=== PATIENT | female | born 1975 | race Hispanic/Latino ===

== ENCOUNTER 2017-09-30 06:44 | Inpatient (IN) | payer BC ==
[2017-09-29 13:29] VITALS: BMI 21.7
[2017-09-30] MEDS ORDERED: Bupivacaine HCl 0.25% PF (30 ml) Inj ONE (07:21)
[2017-09-30] MEDS ORDERED: Silver Nitrate Topical - Stick ONE (07:21)
[2017-09-30] MEDS ORDERED: Chlorhexidine Gluconate 2OZ GEL TP ONE (07:22)
[2017-09-30] MEDS ORDERED: ePHEDrine 50 mg/ml Inj ONE (07:28)
[2017-09-30] MEDS ORDERED: Succinylcholine 200 mg/10 ml Inj IV ONE (07:28)
[2017-09-30] MEDS ORDERED: Phenylephrine 10 mg/ml Inj ONE (07:28)
[2017-09-30] MEDS ORDERED: Rocuronium 10 mg/ml (5 ml) ONE (07:28)
[2017-09-30] MEDS ORDERED: Propofol 10 mg/ml Inj (20 ML) ONE (07:28)
[2017-09-30] MEDS ORDERED: Midazolam 2 MG/2 ML VIAL ONE (07:28)
[2017-09-30] MEDS ORDERED: Clindamycin 600mg/50ml NS 600 MG/50 ML BAG IVPB ONE (07:43)
[2017-09-30] MEDS ORDERED: Neostigmine 1:1000 (1 mg/ml) Inj ONE (07:47)
[2017-09-30] MEDS ORDERED: Lactated Ringer's 1,000 ML IV ONE ×3 (08:06→10:49)
[2017-09-30 08:20] LABS: MEAN CELL VOLUME 67.2 fl (81.0-99.0); MEAN CORPUSCULAR HGB CONC 32.8 g/dL (33.0-37.0); RED CELL DISTRIBUTION WIDTH 22.5 % (11.5-14.5); WHITE BLOOD COUNT 5.7 K/uL (4.8-10.8)
[2017-09-30] MEDS ORDERED: Dexamethasone 4 mg/1 ml ONE (09:22)
[2017-09-30] MEDS ORDERED: Morphine 1 mg/ml preservative-free Inj(Duramorph) ONE (10:15)
[2017-09-30] MEDS ORDERED: Naloxone 0.4 mg/ml Inj (Adult) IVP PRN (12:05)
[2017-09-30] MEDS: HYDROmorphone 0.5 mg/0.5 ml ISec IVP PRN ×2 (12:20→13:00)
[2017-09-30] MEDS ORDERED: metroNIDAZOLE 500mg/100ml NS 100 ML IVPB SCH ×3 (13:00→21:00)
[2017-09-30] MEDS ORDERED: Clindamycin 600mg/50ml D5W 600 MG/50 ML VIAL IVPB SCH (17:00)
[2017-09-30] MEDS: Lactated Ringer's 1,000 ML IV SCH (21:30)
[2017-10-01] MEDS ORDERED: DiphenhydrAMINE 50 mg/ml Inj IVP STA (00:35)
[2017-10-01] MEDS: Lactated Ringer's 1,000 ML IV SCH (08:34)
[2017-10-01] MEDS: HYDROmorphone 0.5 mg/0.5 ml ISec IVP PRN ×2 (17:02→22:34)
[2017-10-02] MEDS: HYDROmorphone 0.5 mg/0.5 ml ISec IVP PRN (04:49)
[2017-10-03 11:07] VITALS: BP 114/66; PULSE 79; RESP 16; TEMP 98.4; O2SAT 100
--- NOTE | 2017-10-05 18:40 | OP ---
PROCEDURE DATE: 09/30/2017 SURGEON: Roni King MD ASSISTED BY: Dom Carranza MD PREOPERATIVE DIAGNOSES: Pelvic pain, dysmenorrhea, dyspareunia, and vulvodynia. POSTOPERATIVE DIAGNOSES: Pelvic pain, dysmenorrhea, dyspareunia, vulvodynia, endometriosis, and uterine adenomyosis. PROCEDURE PERFORMED: Cystoscopy with bilateral ureteral catheterization with injection of dye, robotic da Lori laparoscopy operative, bilateral ureterolysis, excision of pelvic endometriosis, robotic hysterectomy and bilateral salpingectomy, and incidental appendectomy to be performed by Dr. Dom Carranza from General Surgery. ESTIMATED BLOOD LOSS: Minimal. ANESTHESIA: General endotracheal. SAMPLES: Soft tissue from left ureteral, left uterosacral, posterior cervical, right periureteral, uterocervix and both fallopian tubes, and appendix. INDICATION FOR THE PROCEDURE: The patient is a 42-year-old female with a longstanding history of severe pelvic pain. The pain had gone much severe over the past year and the patient had undergone multiple cycle treatments of pelvic therapy and therapeutic injections. She was on multiple medications including vaginal Valium and oral narcotics, which were unsuccessful in treating her problem. She also failed hormonal treatments. Prior to the surgery, the patient was counseled with regards to the risks and the benefits of the procedure and the likelihood of the operation to resolve her problems. She signed the consent and she was taken to the OR. DESCRIPTION OF PROCEDURE: After adequate anesthesia was obtained, the patient was placed in dorsal lithotomy position with extreme attention not to over flex or over extend her hips. She was padded in all areas prone to compression and she was prepped and draped. A time-out was taken according to the hospital standard and the procedure was stated. A cystoscope was inserted into the bladder and the bladder was gently distended. There was no evidence of interstitial cystitis. There was no evidence of stones or masses in the bladder or tumors. Both uterus were in normal anatomical position. The left ureter was catheterized and 5 mL of IC-Green were injected into the distal ureter. Similarly, 5 mL of IC-Green were injected into the contralateral distal ureter. At this point, the cystoscope was removed. A 16-Turkmen Ann was entered into the bladder, attention was in the pelvis. After regowning and regloving, an open laparoscopy was performed, this was with the incision above the patient's umbilicus as she had a mesh placed in her umbilical due to an umbilical hernia. An incision was made on the skin and the fascia was incised. The peritoneum was entered in blunt fashion and a cannula was placed. The abdomen was insufflated. Under direct visualization, three additional ports were inserted; left upper quadrant, left mid quadrant, and right upper quadrant. At this point, the da Lori Xi robot was docked and the procedure was started. The upper abdomen was free of adhesions and there was no evidence of endometriosis. The pelvis showed evidence of inflammatory changes, especially in the peritoneal sidewall and the cul-de-sac area. The uterus was enlarged and boggy. Both fallopian tubes appear to have areas of inflammatory changes on the surface. The procedure was started, the first part of procedure involved identifying the ureters on the left utilizing fluorescences and after elevating the ovary, the retroperitoneum was entered and a full dissection was performed medializing the peritoneum, lateralizing the ureter and excising larger peritoneum. The upper margin of dissection being the utero-ovarium ligament and the lower margin of the uterosacral ligament on the left hand side. An area of peritoneum then was sent to Pathology. The incision was then extended posterior to the cervix. The rectovaginal space was entered and opened and the rectum was dissected away. An area of peritoneum was also excised and sent to Pathology. Attention was then on the right hand side, the right side was little bit less inflamed. The peritoneum was then entered. The ureter was identified utilizing fluorescent technology and then a progressive meticulous excision was performed dissecting an area of peritoneum all the way down to the uterosacral ligaments on the left hand side. At this point, attention was on the round ligaments on the left hand side, which were bipolar coagulated and cut and similarly on the right hand side the round ligaments were bipolar coagulated and cut. Gentle dissection was performed anteriorly on the peritoneal leaf and the bladder was progressively dissected off. The patient had two prior C-sections so the dissection was executed carefully. I was able to push down to bladder along the anterior surface of the vagina without any problem and with a very meticulous dissection. Attention was then laterally where progressively the broad ligaments were coagulated and cut all the way down to the uterine vessels first to the left hand side, which were coagulated and cut and then on the right hand side were coagulated and cut. At this point, the vagina was incised circumferentially utilizing the V-care as a back-stock and the uterus was detached. It was grasped and exteriorized. The left fallopian tube was removed along with the uterus. At this point, the cervical defect was closed with a running suture of 2-0 V-Loc in a running fashion. Hemostasis was excellent and minimal blood loss was lost. At this point, a right salpingectomy was performed and a tube was taken off through the port. It was checked for hemostasis and appeared to be excellent. The pelvis was in excellent condition. Both ureters were identified utilizing fluorescent technology and appeared to be away from the suture line and in perfect condition. At this point, attention was on the appendix, which appeared to have some adhesions. Secondary to the patient's diffuse pain problem and the patient's age, it was decided to proceed with appendectomy. Dr. Carranza from General Surgery was called in to perform the procedure. He will dictate that separately. Once the procedure was done, the da Lori robot was undocked, the instruments were removed, the patient was awakened up and taken to recovery room in excellent condition. Roni King MD MTDD
--- NOTE | 2017-10-12 10:54 | PCM.OP ---
Operative Report - Operative Report Date of Surgery/Procedure: 09/30/17 Time of Surgery/Procedure: 10:00 Surgeon: Dr. Dom Carranza Skull Chopper: Dr. Roni King Anesthesia/Sedation: general/Dr. Melendez Pre-Operative Diagnosis: abdominal pain and endometriosis Post-Operative Diagnosis: same Indication for Surgery: as above with appendiceal invovlement Operative Findings: as above Procedure/Operation Description: 1-Appendectomy. Breif Histroy: This 42 year old woman was brought to surgery by Dr. King when he requested an intraoperative gneeral surgery consultation. Description of the Procedure: Dr. King had already initiated the robotic operation Separate dictation Dr. King ). After taking control of the robotic console the appendix was retracted and the mensetery was dessicvated with electrocuatery with particular attention to the appnediceal artery. Once the base was dissected three 3-0 vicryl endoloops were placced at the base and the appendic was trnasected and snet to pathology separately. The operation was then turned over to Dr. King (separate dictation ). Estimated Blood Loss: 2 cc Complications: none Discharge & Condition: stable
== END 2017-10-03 14:55 | disposition home or self-care (01) | DRG 743 ==
LOC: H.OPSURG 06:44 → H.PEDS 15:01
PROVIDERS: ADMIT Obstetrics & Gynecology Reproductive Endocrinology; ATTEND Obstetrics & Gynecology Reproductive Endocrinology
PROC: 0UDB7ZZ Extraction of Endometrium, Via Natural or Artificial Opening (ICD-10-PCS; 2017-09-30)
PROC: 0DTJ0ZZ Resection of Appendix, Open Approach (ICD-10-PCS; 2017-09-30)
PROC: 8E0W0CZ Robotic Assisted Procedure of Trunk Region, Open Approach (ICD-10-PCS; 2017-09-30)
PROC: 0TJB8ZZ Inspection of Bladder, Via Natural or Artificial Opening Endoscopic (ICD-10-PCS; principal; 2017-09-30 08:30)
PROC: 0UT90ZZ Resection of Uterus, Open Approach (ICD-10-PCS; 2017-09-30 08:30)
PROC: 0UT70ZZ Resection of Bilateral Fallopian Tubes, Open Approach (ICD-10-PCS; 2017-09-30 08:30)
DX: N80.0 Endometriosis of uterus (principal); R10.2 Pelvic and perineal pain; N80.8 Other endometriosis; K38.9 Disease of appendix, unspecified